=== PATIENT | male | born 1960 | race Two or more races ===

== ENCOUNTER 2020-12-05 07:22 | Day surgery (SDC) | payer OTHER ==
[2020-12-03 10:57] VITALS: BMI 36.1
[2020-12-05] MEDS ORDERED: ONDANSETRON 4 MG/2 ML VIAL IVPUSH PRN (08:27)
[2020-12-05] MEDS ORDERED: ACETAMINOPHEN 325 MG TABLET (FP) PO PRN (08:27)
[2020-12-05] MEDS ORDERED: LACTATED RINGERS SOLUTION 1,000 ML IV SCH (08:30)
[2020-12-05] MEDS ORDERED: PROPOFOL 20 ML ONE ×2 (08:44→09:11)
[2020-12-05] MEDS ORDERED: ceFAZolin SODIUM 1 GM VIAL ONE (09:02)
[2020-12-05] MEDS ORDERED: SUCCINYLCHOLINE CHLORIDE 200 MG/10 ML SYRINGE ONE (09:09)
[2020-12-05] MEDS ORDERED: DEXAMETHASONE SOD PHOSPHATE 4 MG/1 ML VIAL ONE (09:22)
[2020-12-05] MEDS ORDERED: BUPIVACAINE HCL/PF 0.25% (2.5MG/ML) 10 ML VIAL IJ ONE (09:41)
[2020-12-05] MEDS ORDERED: ONDANSETRON 4 MG/2 ML VIAL ONE (10:46)
[2020-12-05 11:25] VITALS: TEMP 98.3
[2020-12-05] MEDS ORDERED: oxyCODONE HCL 5 MG TABLET ONE ×2 (12:27→13:36)
[2020-12-05] MEDS: oxyCODONE HCL 5 MG TABLET PO PRN ×2 (12:30→13:40)
[2020-12-05 13:18] VITALS: BP 101/66; PULSE 70
== END 2020-12-05 15:40 | disposition home or self-care (01) ==
LOC: FASU 07:22
PROVIDERS: ATTEND Orthopaedic Surgery Sports Medicine
PROC: 0SBC4ZZ Excision of Right Knee Joint, Percutaneous Endoscopic Approach (ICD-10-PCS; 2020-12-05)
PROC: 0SBD4ZZ Excision of Left Knee Joint, Percutaneous Endoscopic Approach (ICD-10-PCS; principal; 2020-12-05 09:17)
DX: S83.282A Other tear of lateral meniscus, current injury, left knee, initial encounter (principal); S83.242A Other tear of medial meniscus, current injury, left knee, initial encounter; S83.241A Other tear of medial meniscus, current injury, right knee, initial encounter; Y93.9 Activity, unspecified; Y92.9 Unspecified place or not applicable
CPT/HCPCS: 94760